=== PATIENT | male | born 2000 | race Two or more races ===

== ENCOUNTER 2022-01-23 14:25 | Emergency (ER) | payer SELFPAY ==
[~2022-01-23] VITALS: Ht 180.3 cm; Wt 90.7 kg
--- NOTE | 2022-01-23 14:25 | NUR ---
BIB C/O L KNEE SHOOTING PAIN 5/10 ON PS, SWELLING AT NIGHT PT TORE HIS MENISCUS 4 YEARS AGO.
--- NOTE | 2022-01-23 14:30 | NUR ---
DR ALVAREZ EVALUATING PT
--- NOTE | 2022-01-23 14:41 | NUR ---
CRUTCHED WERE GIVEN TO PT, PT WAS TAUGHT AND UNDERSTOOD HOW TO USE CRUTCHES.
[2022-01-23] MEDS ORDERED: IBUP-1955 PO (14:55)
--- NOTE | 2022-01-23 15:06 | NUR ---
Patient discharged to home in stable condition. Written and verbal after care instructions given. Patient verbalizes understanding of instruction. Work noted provided to patient.
[2022-01-23 15:08] VITALS: BP 134/66
== END 2022-01-23 15:08 | disposition home or self-care (01) ==
LOC: ER 14:57
DX: M25.562 Pain in left knee (principal)